=== PATIENT | female | born 1990 | race African-American/Black ===

== ENCOUNTER 2016-12-07 19:32 | Emergency (ER) | payer OTHER, MEDICAID ==
[2016-12-07 20:03] VITALS: BP 116/64
[2016-12-07] MEDS ORDERED: LIDOCAINE 1% INJ-PF (10 MG/ML) 30 ML SDV INJ ONE (21:05)
[2016-12-07] MEDS ORDERED: DIPH/PERTUSS(ACELL)/TETANUS VAC/PF 0.5 ML SYR (>=10YO) IM ONE (21:06)
--- NOTE | 2016-12-07 21:09 | ER Document Report ---
ED Wound - General Chief Complaint: Laceration Stated Complaint: FOOT INJURY Time Seen by Provider: 12/07/16 20:27 Mode of Arrival: Ambulatory Information source: Patient TRAVEL OUTSIDE OF THE [place] IN LAST 30 DAYS: No - HPI Patient complains to provider of: Laceration Occurred: Just prior to arrival Onset/Duration: Sudden Quality of pain: No pain Context: Injury Skin Color: Normal Capillary refill: < 3 seconds Sensations intact: Yes Distal pulses present: Yes Associated Symptoms: Bleeding Notes: Patient states that she dropped a knife and moved her foot in an attempt to not be hit by the knife and when she put her foot down she excellently stepped on a knife causing a small laceration to the medial aspect of the left foot. Bleeding is controlled. She denies any other injuries. She denies any numbness , tingling, weakness. She denies any rashes. No redness. No drainage. She is approximately 19 weeks . She is unsure of her last tetanus shot. She denies any other complaints at this time. - Related Data Allergies/Adverse Reactions: carboxymethylcellulose sodium [From Sterile Lubricant] Adverse Reaction ( Verified 11/28/15 16:00) unknown abx Allergy (Uncoded 11/28/15 16:00) Past Medical History - Social History Smoking Status: Unknown if Ever Smoked Family History: CVA, DM, Hypertension, Other - Kidney failure and brain tumor noncancerous Patient has suicidal ideation: No Patient has homicidal ideation: No Neurological Medical History: Reports: Hx Migraine Renal/ Medical History: Denies: Hx Peritoneal Dialysis GI Medical History: Reports: Hx Hiatal Hernia Psychiatric Medical History: Reports: Hx Anxiety, Hx Bipolar Disorder Past Surgical History: Reports: Hx Adenoidectomy, Hx Oral Surgery - Palate surgery, Hx Tonsillectomy - Immunizations Immunizations up to date: Yes Hx Diphtheria, Pertussis, Tetanus Vaccination: Yes Review of Systems - Review of Systems -: Yes All other systems reviewed and negative Physical Exam - Vital signs Vitals: Temp Pulse BP Pulse Ox 98.9 F 77 116/64 100 12/07/16 20:02 12/07/16 20:02 12/07/16 20:02 12/07/16 20:02 - Notes Notes: GENERAL: alert, cooperative, nontoxic, no distress. HEAD: normocephalic, atraumatic EYES: conjunctiva pink without discharge, no external redness or swelling. EARS: no external swelling, no external redness NOSE: atraumatic, no external swelling MOUTH/THROAT: mucous membranes moist and pink NECK: soft, supple, full range of motion, no meningismus. CHEST: no distress, lungs clear and equal throughout. No wheezing, rales, rhonchi. CARDIAC: regular rate and rhythm, no murmur, normal capillary refill, normal pulses. BACK: full range of motion, no CVA tenderness. EXTREMITIES: full range of motion of all extremities. No redness, no swelling. 2 cm laceration to the medial aspect of the left foot. Bleeding is controlled. This is into the subcutaneous tissue. There is no foreign body. No tendon laceration. Normal neurovascular exam distally. Normal pulse. NEURO: alert and oriented 3, no focal deficits, full range of motion of all extremities. PYSCH: appropriate mood, affect. Patient is cooperative. SKIN: pink, warm, dry, no rash. 2 cm laceration to the left foot. Course - Re-evaluation Re-evalutation: 12/07/16 21:41 Patient is nontoxic. Stable vitals. The patient has a superficial laceration to the medial aspect of the left foot. No foreign body. This was cleaned. Tetanus was updated. Sutures were placed. The patient will be discharged home with instructions to have the sutures removed in 10-12 days. Follow-up for increased pain, fever, redness, drainage, any further concerns. The patient's emergency department workup and current diagnosis were explained to the patient and or family. Follow-up instructions were provided. Medications if prescribed were discussed. Instructions for when to return to the emergency department including specific worrisome symptoms were discussed with the patient and/or family. - Vital Signs Vital signs: Temp Pulse Resp BP Pulse Ox 98.9 F 77 116/64 100 12/07/16 20:02 12/07/16 20:02 12/07/16 20:02 12/07/16 20:02 Procedures - Laceration/Wound Repair Left foot Wound length (cm): 2 Wound's Depth, Shape: Superficial, Linear Laceration pre-procedure: Sterile PPE donned, Sterile drapes applied Anesthetic type: 1% Lidocaine Wound explored: Clean, No foreign body removed Wound Repaired With: Sutures Suture Size/Type: 4:0, Nylon Number of Sutures: 4 Layer Closure?: No Post-procedure wound care: Sterile dressing applied Post-procedure NV exam normal: Yes Complications: No Discharge - Discharge Clinical Impression: Laceration of left foot Qualifiers: Encounter type: initial encounter Qualified Code(s): S91.312A - Laceration without foreign body, left foot, initial encounter Condition: Stable Disposition: HOME, SELF-CARE Instructions: Laceration Care ([facility]) Additional Instructions: Tylenol as needed for pain. Clean wound twice a day with soap and water. Follow-up in 10-12 days for suture removal. Follow-up sooner for increased pain , fever, redness, drainage, any further concerns. Referrals: [facility] [Provider Group] - Follow up as needed
== END 2016-12-07 22:02 | disposition home or self-care (01) ==
LOC: ER 19:32
DX: S91.312A Laceration without foreign body, left foot, initial encounter (principal); W26.0XXA Contact with knife, initial encounter; Z23 Encounter for immunization; Z88.1 Allergy status to other antibiotic agents; Z3A.19 19 weeks gestation of pregnancy
CPT/HCPCS: 12001; 99282; 90471; 90715; J3490

== ENCOUNTER 2017-03-25 19:24 | Outpatient (CLI) | payer OTHER, MEDICAID ==
[2017-03-25 19:19] VITALS: BP 123/69
[2017-03-25 20:30] LABS: ABSOLUTE EOSINOPHILS # (AUTO) 0.1 10^3/uL (0.0-0.6); ABSOLUTE MONOCYTES (AUTO) 0.6 10^3/uL (0.1-1.4); ABSOLUTE NEUT (AUTO) 6.9 10^3/uL (1.7-8.2); BASOPHILS % (AUTO) 0.2 % (0-2); EOSINOPHILS % (AUTO) 0.7 % (0-6); HEMATOCRIT 32.3 % (36.0-47.0); HEMOGLOBIN 10.6 g/dL (12.0-15.5); LYMPHOCYTES % (AUTO) 20.6 % (13-45); MEAN CORPUSCULAR HEMOGLOBIN 25.5 pg (27.0-33.4); MEAN CORPUSCULAR HGB CONC 32.8 g/dL (32.0-36.0); MEAN CORPUSCULAR VOLUME 78 fl (80-97); MONOCYTES % (AUTO) 6.2 % (3-13); PLATELET COUNT 167 10^3/uL (150-450); RED BLOOD COUNT 4.17 10^6/uL (3.72-5.28); RED CELL DISTRIBUTION WIDTH 13.7 % (11.5-14.0); SEGMENTED NEUTROPHILS % (AUTO) 72.3 % (42-78); TOTAL CELLS COUNTED % (AUTO) 100 %; WHITE BLOOD COUNT 9.6 10^3/uL (4.0-10.5)
[2017-03-25 20:39] LABS: APPEARANCE,URINE CLEAR; BILIRUBIN,URINE NEGATIVE (NEGATIVE); COLOR,URINE YELLOW; GLUCOSE, URINE NEGATIVE (NEGATIVE); KETONES,URINE NEGATIVE (NEGATIVE); LEUKOCYTE ESTERASE,URINE SMALL (NEGATIVE); NITRITE,URINE NEGATIVE (NEGATIVE); PROTEIN,URINE NEGATIVE (NEGATIVE); URINE SPECIFIC GRAVITY 1.005; UROBILINOGEN,URINE NEGATIVE mg/dL (<2.0)
[2017-03-25 20:45] LABS: ALANINE AMINOTRANSFERASE 18 U/L (9-52); ALBUMIN 2.9 g/dL (3.5-5.0); ALKALINE PHOSPHATASE 131 U/L (38-126); ANION GAP 7 (5-19); ASPARTATE AMINO TRANSFERASE 14 U/L (14-36); BILIRUBIN,DIRECT 0.3 mg/dL (0.0-0.4); BILIRUBIN,TOTAL 0.4 mg/dL (0.2-1.3); BLOOD UREA NITROGEN 3 mg/dL (7-20); CALCIUM 8.9 mg/dL (8.4-10.2); CARBON DIOXIDE 22 mmol/L (22-30); CHLORIDE 108 mmol/L (98-107); GLUCOSE 90 mg/dL (75-110); POTASSIUM 3.7 mmol/L (3.6-5.0); SODIUM 136.5 mmol/L (137-145); TOTAL PROTEIN 5.9 g/dL (6.3-8.2)
[2017-03-25 21:00] LABS: URINE AMPHETAMINES SCREEN NEGATIVE; URINE BARBITURATES SCREEN NEGATIVE; URINE BENZODIAZEPINES SCREEN NEGATIVE; URINE COCAINE SCREEN NEGATIVE; URINE MARIJUANA (THC) SCREEN NEGATIVE; URINE METHADONE SCREEN NEGATIVE; URINE PHENCYCLIDINE SCREEN NEGATIVE
--- NOTE | 2017-03-25 22:11 | Non Stress Test Report ---
Non Stress Test Datetime Report Generated by CPN: 03/25/2017 22:11 DEMOGRAPHIC EGA NST: 34.1 INDICATION Indication for Study: Ordered by Provider; Other Indication for Study (NST) Other: labor check MONITORING Monitor Explained: Monitor Explained; Test Explained; Patient Verbalized Understanding Time on Monitor: 03/25/2017 19:54 Time off Monitor: 03/25/2017 21:59 NST Duration: 125 NST INTERVENTIONS NST Interventions: PO Hydration; IV Fluids Physician Notified NST: Dr Jr BABY A: [id number] BABY A Movement : Present Contraction Frequency : none FHR Baseline : 135 Accelerations : 15X15 Decelerations : None Variability : Moderate 6-25bpm NST Review: Meets Criteria for Reactive NST NST Review and Verified By : B. Ring RN NST Results: Reactive NST COMMENTS NST Comments: Dr Jr reviewed strip, pt stable for D/C home. NST REPORT Report Trigger: Send Report
== END 2017-03-25 22:10 | disposition home or self-care (01) ==
LOC: LC 19:24 → EDSTATUS 19:33 → LC 22:10
PROVIDERS: ATTEND Obstetrics & Gynecology
PROC: 4A1HXCZ Monitoring of Products of Conception, Cardiac Rate, External Approach (ICD-10-PCS; principal; 2017-03-25)
DX: O47.03 False labor before 37 completed weeks of gestation, third trimester (principal); Z3A.34 34 weeks gestation of pregnancy
CPT/HCPCS: 36415; 59025; 80053; 80307; 81001; 85025

== ENCOUNTER 2017-04-19 03:45 | Inpatient (IN) | payer OTHER, MEDICAID ==
[2017-04-19 04:22] LABS: APPEARANCE,URINE SLIGHTLY-CLOUDY; BILIRUBIN,URINE NEGATIVE (NEGATIVE); COLOR,URINE YELLOW; GLUCOSE, URINE NEGATIVE (NEGATIVE); KETONES,URINE NEGATIVE (NEGATIVE); LEUKOCYTE ESTERASE,URINE TRACE (NEGATIVE); NITRITE,URINE NEGATIVE (NEGATIVE); PROTEIN,URINE NEGATIVE (NEGATIVE); URINE SPECIFIC GRAVITY 1.005; UROBILINOGEN,URINE NEGATIVE mg/dL (<2.0)
[2017-04-19 04:32] LABS: AMNISURE (ROM) POSITIVE (NEGATIVE)
[2017-04-19] MEDS ORDERED: RINGERS SOLUTION,LACTATED 1,000 ML IV PRN (04:33)
[2017-04-19] MEDS ORDERED: PENICILLIN G POTASSIUM 5,000,000 UNIT in DEXTROSE 5%-WATER 100 ML IV ONE (04:33)
[2017-04-19] MEDS ORDERED: RINGERS SOLUTION,LACTATED 1,000 ML IV ONE (04:33)
[2017-04-19] MEDS ORDERED: PENICILLIN G-K 5 MILLION UNIT VIAL ONE (04:34)
[2017-04-19] MEDS ORDERED: LIDOCAINE 1% INJ-PF (10 MG/ML) 30 ML SDV ONE (04:35)
[2017-04-19] MEDS ORDERED: OXYTOCIN/NORMAL SALINE 20 UNIT/1,000 ML RTUINJ ONE (04:35)
[2017-04-19] MEDS ORDERED: MISOPROSTOL 0.2 MG TABLET ONE (04:35)
[2017-04-19 04:41] LABS: URINE AMPHETAMINES SCREEN NEGATIVE; URINE BARBITURATES SCREEN NEGATIVE; URINE BENZODIAZEPINES SCREEN NEGATIVE; URINE COCAINE SCREEN NEGATIVE; URINE MARIJUANA (THC) SCREEN NEGATIVE; URINE METHADONE SCREEN NEGATIVE; URINE PHENCYCLIDINE SCREEN NEGATIVE
[2017-04-19 05:07] LABS: HEMATOCRIT 34.6 % (36.0-47.0); HEMOGLOBIN 11.5 g/dL (12.0-15.5); MEAN CORPUSCULAR HEMOGLOBIN 25.6 pg (27.0-33.4); MEAN CORPUSCULAR HGB CONC 33.1 g/dL (32.0-36.0); MEAN CORPUSCULAR VOLUME 77 fl (80-97); PLATELET COUNT 151 10^3/uL (150-450); RED BLOOD COUNT 4.47 10^6/uL (3.72-5.28); RED CELL DISTRIBUTION WIDTH 15.9 % (11.5-14.0); WHITE BLOOD COUNT 10.7 10^3/uL (4.0-10.5)
[2017-04-19 05:35] LABS: ABSOLUTE LYMPHOCYTES# (MANUAL) 2.7 10^3/uL (0.5-4.7); ABSOLUTE MONOCYTES # (MANUAL) 0.7 10^3/uL (0.1-1.4); ABSOLUTE NEUTROPHILS# (MANUAL) 7.3 10^3/uL (1.7-8.2); BAND NEUTROPHILS % (MANUAL) 1 % (3-5); BASOPHILS % (MANUAL) 0 % (0-2); EOSINOPHILS % (MANUAL) 0 % (0-6); LYMPHOCYTES % (MANUAL) 25 % (13-45); MONOCYTES % (MANUAL) 7 % (3-13); SEGMENTED NEUTROPHILS % (MAN) 67 % (42-78); TOTAL CELLS COUNTED 100
[2017-04-19 05:36] LABS: ANISOCYTOSIS SLIGHT; OVALOCYTES 1+; POIKILOCYTOSIS 1+; SCHISTOCYTES 1+; TOXIC GRANULATION 2+
[2017-04-19 05:37] LABS: PLATELET COMMENT ADEQUATE; PLATELET LARGE PRESENT; TEAR DROP CELLS SLIGHT; TOXIC VACUOLATION PRESENT
[2017-04-19] MEDS ORDERED: MEASLES,MUMPS&RUBELLA VACC/PF 0.5 ML VIAL SUBCUT PRN (07:01)
[2017-04-19] MEDS ORDERED: PROMETHAZINE HCL 25 MG SUPP.RECT PR PRN (07:01)
[2017-04-19] MEDS ORDERED: NA PHOS,M-B/NA PHOS,DI-BA (ADULT) 133 ML ENEMA PR PRN (07:01)
[2017-04-19] MEDS ORDERED: ACETAMINOPHEN 650 MG SUPP.RECT PR PRN (07:01)
[2017-04-19] MEDS ORDERED: DIPHENHYDRAMINE HCL 25 MG CAPSULE PO PRN (07:01)
[2017-04-19] MEDS ORDERED: DIPH/PERTUSS(ACELL)/TETANUS VAC/PF 0.5 ML SYR (>=10YO) IM PRN (07:01)
[2017-04-19] MEDS ORDERED: PSEUDOEPHEDRINE HCL 30 MG TABLET PO PRN (07:01)
[2017-04-19] MEDS ORDERED: PROMETHAZINE HCL 25 MG TABLET PO PRN (07:01)
[2017-04-19] MEDS ORDERED: OXYTOCIN/NORMAL SALINE 20 UNIT/1,000 ML RTUINJ IV PRN (07:01)
[2017-04-19] MEDS ORDERED: MAGNESIUM HYDROXIDE SUSP 30 ML UDCUP PO PRN (07:01)
[2017-04-19] MEDS ORDERED: DIBUCAINE 1% OINTMENT 28 GM TP PRN (07:01)
[2017-04-19] MEDS ORDERED: BENZOCAINE/MENTHOL AEROSOL SPRAY 56 ML TOP PRN (07:01)
[2017-04-19] MEDS ORDERED: ZOLPIDEM TARTRATE 5 MG TABLET PO PRN (07:01)
[2017-04-19] MEDS ORDERED: PROMETHAZINE HCL INJ 25 MG/1 ML VIAL IV PRN (07:01)
[2017-04-19] MEDS ORDERED: GLYCERIN/WITCH HAZEL LEAF 1 EACH MED..PAD TP PRN (07:01)
[2017-04-19] MEDS ORDERED: ACETAMINOPHEN WITH CODEINE #3 TABLET PO PRN ×2 (07:01)
[2017-04-19] MEDS ORDERED: IBUPROFEN 800 MG TABLET ONE (07:54)
[2017-04-19] MEDS ORDERED: PENICILLIN G POTASSIUM 2,500,000 UNIT in DEXTROSE 5%-WATER 50 ML IV SCH (08:00)
--- NOTE | 2017-04-19 09:14 | Delivery Summary ---
Del Sum A-C Datetime Report Generated by CPN: 04/19/2017 09:14 DELIVERY PERSONNEL DELIVERY PERSONNEL: [id number] Delivery Doctor:: Solange Norris MD Labor and Delivery Nurse:: Gloria Hayward RN Labor and Delivery Nurse:: Lindsey Ramirez RN Nursery Nurse:: Esther Mo RN Fire Observer/DIRECTOR CORPORATE COMPLIANCE: Dennise Semar, PROFESSIONAL SERVICES MANAGER MATERNAL INFORMATION Delivery Anesthesia: None Medications After Delivery: Pitocin Bolus-Please Comment; Pitocin Drip 20 Units/1000ml NSS Maternal Complications: Precipitous Labor (<3hrs) LABOR SUMMARY EDC: 05/05/2017 00:00 No. Babies in Womb: 1 Attempted: No Labor Anesthesia: None LABOR INFORMATION Reason for Induction: Not Applicable Onset of Labor: 04/19/2017 03:30 Complete Dilatation: 04/19/2017 06:23 Oxytocin: N/A Group B Beta Strep: Positive Antibiotics # of Doses: 1 Antibiotics Time of Last Dose: 0518 Name of Antibiotic Given: PCN Steroids Given: None Reason Steroids Not Administered: Not Applicable MEMBRANES Membranes Rupture Method: Spontaneous Rupture of Membranes: 04/19/2017 03:30 Length of Rupture (hr): 3.22 Amniotic Fluid Color: Clear Amniotic Fluid Amount: Small Amniotic Fluid Odor: Normal STAGES OF LABOR Stage 1 hr: 2 Stage 1 min: 53 Stage 2 hr: 0 Stage 2 min: 20 Stage 3 hr: 0 Stage 3 min: 2 Total Time in Labor hr: 3 Total Time in Labor min: 15 VAGINAL DELIVERY Episiotomy: None Laceration #1: None Laceration Extension #1: N/A Laceration Repair: Not Applicable Sponge Count Correct: N/A Sharps Count Correct: N/A CSECTION DELIVERY Primary Indication: N/A Secondary Indication: N/A CSection Incidence: N/A Labor: N/A Elective: N/A CSection Incision: N/A BABY A INFORMATION Delivery Date/Time: 04/19/2017 06:43 Method of Delivery: Vaginal Born in Route : No : N/A Forceps: N/A Vacuum Extraction: Successful Shoulder Dystocia : No ASSISTED DELIVERY BABY A Indication for Assisted Delivery: Deep Variables and decreased maternal pushing effort Catheter Prior to Procedure: Yes Station Vacuum/Forcep Apply: +2 Vacuum Number of Pulls: 1 Vacuum Number of PopOffs: 1 Vacuum Maximum Pressure Obtained: 550 Reduce Pressure btwn Ctx: No Vacuum Pediatric Neuropsychologist: KIWI Total Time Vacuum Applied: 1 min PRESENTATION/POSITION BABY A Presentation: Cephalic Cephalic Presentation: Vertex Vertex Position: Left Occipital Anterior Breech Presentation: N/A PLACENTA INFORMATION BABY A Placenta Delivery Time : 04/19/2017 06:45 Placenta Method of Delivery: Spontaneous Placenta Status: Delivered SCORES BABY A Heart Rate 1 min: >100 bpm Resp Effort 1 min: Slow, Irregular Reflex Irritability 1 min: Cough or Sneeze or Pulls Away Muscle Tone 1 min: Active Motion Color 1 min: Body [place], Extremities Blue Resuscitation Effort 1 min: Tactile Stimulation SCORE 1 MIN: 8 Heart Rate 5 min: >100 bpm Resp Effort 5 min: Good Cry Reflex Irritability 5 min: Cough or Sneeze or Pulls Away Muscle Tone 5 min: Active Motion Color 5 min: Body [place], Extremities Blue Resuscitation Effort 5 min: Tactile Stimulation SCORE 5 MIN: 9 INFANT INFORMATION BABY A Gestational Age at Delivery: 37.5 Gestational Status: Early Term- 37- 38.6 Weeks Outcome : Liveborn Infant Condition : Stable Sex: Male IDENTIFICATION BABY A Verification Date/Time: 04/19/2017 07:29 ID Band Number: [id number] Mother's Name Verified: Yes Infant RN Verifying : CSoledad Riojas, RN/SSoledad Riojas, DIRECTOR CORPORATE COMPLIANCE WEIGHT/LENGTH BABY A Birthweight (gm): 2760 Infant Weight (lb): 6 Infant Weight (oz): 1 Length (in): 18.50 Length (cm): 46.99 CORD INFORMATION BABY A No. Cord Vessels: 3 Nuchal Cord : N/A Cord Blood Taken: Yes-For Eval (Mom's Blood Type - or O+) Infant Suction: Mouth; Nose ASSESSMENT BABY A Infant Complications: Other Infant Complications- Other: terminal mec Physical Findings at Delivery: Molding of the Head Respirations: Appears Normal Skin to Skin: Yes Skin to Skin Time (min): 60 Route Cdl Driver/ALS Called : No Infant Care By: Conchita Mo RN Transferred To: Remains with Mother BABY B INFORMATION : N/A SIGNATURES Signature: with User ID: [email or web address]
--- NOTE | 2017-04-19 10:12 | Admission Physical ---
Datetime Report Generated by CPN: 04/19/2017 10:12 CURRENT ADMISSION Chief Complaint: Uterine Contractions; Suspected Ruptured Membranes Chief Complaint Other: SROM @ [facility] Indication for Induction: Not Applicable Indication for Induction: Term, Intrauterine ; Active Labor Admit Plan: Admit to Unit; Initiate Labor Protocol ALLERGIES Medication Allergies: Yes Medication Allergies: ciprofloxacin (04/19/2017); latex (04/19/2017) Medication Allergies: ciprofloxacin (04/19/2017) Medication Allergies: carboxymethylcellulose sodium (11/28/2015) Latex: Latex Allergies Food Allergies: Gluten, dairy, tree nuts OBSTETRICAL HISTORY EDC: 05/05/2017 00:00 : 2 Para: 1 Term: 1 : 0 SAB: 0 IAB: 0 Ectopic: 0 Livin Cesareans: 0 VBACs: 0 Multiple Births: 0 Gestational Diabetes: No Rh Sensitization: No Incompetent Cervix: No SONJA: No Infertility: No ART Treatment: No Uterine Anomaly: No IUGR: No Hx Previous C/S: No Macrosomia: No Hx Loss/Stillborn: No PIH: No Hx : No Placenta Previa/Abruption: No Depression/PP Depression: No PTL/PROM: No Post Hemorrhage: No Current Procedures: Ultrasound; NST Obstetrical History Comments: 2012 male @ 37 wks 6lbs 5oz G2- Current SEE RECORDS Alcohol: No Marijuana : No Cocaine: No Other Illicit Drugs: No Cigarettes: Never Smoker. [id number] MEDICAL HISTORY Diabetes: No Blood Transfusion: No Pulmonary Disease (Asthma, TB): No Breast Disease: No Hypertension: No Director Learning And Development Surgery: No Heart Disease: No Hosp/Surgery: Yes Autoimmune Disorder: No Anesthetic Complications: No Kidney Disease: No Abnormal Pap Smear: No Neuro/Epilepsy: No Psychiatric Disorders: No Other Medical Diseases: No Hepatitis/Liver Disease: No Significant Family History: No Varicosities/Phlebitis: No Trauma/Violence : No Thyroid Dysfunction: No Medical History Comments: childbirth; T_A; shaved down palate; INFECTIOUS HISTORY Gonorrhea: No Genital Herpes: No Chlamydia: No Tuberculosis: No Syphilis: No Hepatitis: No HIV/AIDS Exposure: No Rash or Viral Illness: No HPV: No PHYSICAL EXAM General: Normal HEENT: Normal Neurologic: Normal Thyroid: Normal Heart: Normal Lungs: Normal Breast: Normal Back: Normal Abdomen: Normal Genitourinary Exam: Normal Extremities: Normal DTRs: Normal Pelvic Type: Adequate Vital Signs: Reviewed VAGINAL EXAM Dilatation: 10 Effacement: 100 Station: 2 MEMBRANES Pooling: Positive Membranes: Ruptured Amniotic Fluid Color: Clear FETUS A EGA: 37.5 Monitoring: External US FHR- Baseline: 140 Variability: Minimal - Undetectable to <=5bpm (Annotations: Data stored by [facility] on behalf of user) Decelerations: Variable Estimated Weight (gm): 3200 Presentation: Vertex PLANS FOR LABOR AND DELIVERY Labor and Delivery: Other, Specify Pain Management: Natural Feeding Preference: Breast Benefit of Breast Feed Discussed: Yes Circumcision: Yes INFORMED CONSENT Signature: with User ID: [email or web address]
[2017-04-19] MEDS: FAMOTIDINE 20 MG TABLET PO SCH ×2 (10:52→21:32)
[2017-04-19] MEDS: DOCUSATE SODIUM 100 MG CAPSULE PO SCH ×2 (10:52→18:26)
[2017-04-19] MEDS: FERROUS SULFATE 325 MG TABLET PO SCH ×2 (10:52→18:26)
[2017-04-19] MEDS: PRENATAL VITAMIN W DHA CAPSULE PO SCH (10:53)
[2017-04-19] MEDS: SENNOSIDES/DOCUSATE 8.6-50 MG 1 EACH TABLET PO SCH (10:53)
[2017-04-19] MEDS: IBUPROFEN 800 MG TABLET PO SCH ×2 (14:17→21:32)
[2017-04-20] MEDS: IBUPROFEN 800 MG TABLET PO SCH ×3 (05:17→22:32)
[2017-04-20 07:13] LABS: HEMOGLOBIN 10.6 g/dL (12.0-15.5); MEAN CORPUSCULAR HEMOGLOBIN 25.1 pg (27.0-33.4); MEAN CORPUSCULAR HGB CONC 32.2 g/dL (32.0-36.0); MEAN CORPUSCULAR VOLUME 78 fl (80-97); PLATELET COUNT 137 10^3/uL (150-450); RED BLOOD COUNT 4.23 10^6/uL (3.72-5.28); RED CELL DISTRIBUTION WIDTH 16.3 % (11.5-14.0); WHITE BLOOD COUNT 13.2 10^3/uL (4.0-10.5)
--- NOTE | 2017-04-20 08:51 | PDOC PROGRESS REPORT ---
Subjective-OB Progress Note for:: 04/20/17 Physical Exam (OB) Vital Signs: Temp Pulse Resp BP Pulse Ox 98.3 F 68 18 125/66 100 04/19/17 19:57 04/19/17 19:57 04/19/17 19:57 04/19/17 19:57 04/19/17 19:57 Intake & Output 04/19/17 04/20/17 04/21/17 06:59 06:59 06:59 Weight 80.8 kg - PIH/Pre-Eclampsia Clonus: Negative Headache: Absent Epigastric Pain: No Visual Changes: No - Lochia Lochia Amount: Small 10-25 ml Lochia Color: Rubra/Red - Abdomen Description: Soft, Round Hernia Present: No Bowel Sounds: Normoactive Flatus Presence: Present Stool: Yes Fundal Description: Firm Fundal Height: u/u - u/2 - Respiratory Breath sounds: Clear - Extremities Calf: Normal Objective-Diagnostic Laboratory: 04/20/17 06:37 04/20/17 06:37 WBC 13.2 H RBC 4.23 Hgb 10.6 L Hct 33.0 L MCV 78 L MCH 25.1 L MCHC 32.2 RDW 16.3 H Plt Count 137 L Assessment and Plan(PN) - Assessment and Plan (1) Vaginal delivery Is this a current diagnosis for this admission?: Yes - Time Spent with Patient Time with patient: Less than 15 minutes Medications reviewed and adjusted accordingly: Yes - Disposition Anticipated Discharge: Home Within: within 24 hours
[2017-04-20] MEDS: DOCUSATE SODIUM 100 MG CAPSULE PO SCH ×2 (09:42→18:25)
[2017-04-20] MEDS: SENNOSIDES/DOCUSATE 8.6-50 MG 1 EACH TABLET PO SCH (09:42)
[2017-04-20] MEDS: FERROUS SULFATE 325 MG TABLET PO SCH ×2 (09:42→18:26)
[2017-04-20] MEDS: PRENATAL VITAMIN W DHA CAPSULE PO SCH (09:42)
[2017-04-20] MEDS ORDERED: CETIRIZINE 10 MG TABLET PO SCH (12:00)
[2017-04-20] MEDS: FAMOTIDINE 20 MG TABLET PO SCH ×2 (12:02→22:33)
[2017-04-21] MEDS: IBUPROFEN 800 MG TABLET PO SCH ×2 (05:15→14:35)
[2017-04-21] MEDS: DOCUSATE SODIUM 100 MG CAPSULE PO SCH (09:51)
[2017-04-21] MEDS: FAMOTIDINE 20 MG TABLET PO SCH (09:51)
[2017-04-21] MEDS: FERROUS SULFATE 325 MG TABLET PO SCH ×2 (09:51→19:47)
[2017-04-21] MEDS: SENNOSIDES/DOCUSATE 8.6-50 MG 1 EACH TABLET PO SCH (09:51)
[2017-04-21] MEDS: PRENATAL VITAMIN W DHA CAPSULE PO SCH (09:51)
--- NOTE | 2017-04-21 10:51 | PDOC PROGRESS REPORT ---
Subjective-OB Progress Note for:: 04/21/17 Subjective: Doing well, ready to go home, unsure if baby is going due to jaundice, breast feeding, voiding, scant bleeding Physical Exam (OB) Vital Signs: Temp Pulse Resp BP Pulse Ox 98.5 F 74 22 H 115/65 100 04/21/17 10:05 04/21/17 10:05 04/21/17 10:05 04/21/17 10:05 04/21/17 10:05 Intake & Output 04/20/17 04/21/17 04/22/17 06:59 06:59 06:59 Intake Total 240 Balance 240 - PIH/Pre-Eclampsia Clonus: Negative Headache: Absent Epigastric Pain: No Visual Changes: No - Lochia Lochia Amount: Scant < 10 ml Lochia Color: Rubra/Red - Abdomen Description: Soft, Round Hernia Present: No Fundal Description: Firm Fundal Height: u/u - u/2 Objective-Diagnostic Laboratory: 04/20/17 06:37 Assessment and Plan(PN) - Assessment and Plan (1) Vacuum extraction, delivered, current hospitalization Is this a current diagnosis for this admission?: Yes - Time Spent with Patient Time with patient: Less than 15 minutes Medications reviewed and adjusted accordingly: Yes - Disposition Anticipated Discharge: Home Within: Other - home today
--- NOTE | 2017-04-21 10:53 | PDOC DISCHARGE SUMMARY ---
Final Diagnosis Discharge Date: 04/21/17 - Final Diagnosis (1) Vacuum extraction, delivered, current hospitalization Is this a current diagnosis for this admission?: Yes Discharge Data - Discharge Medication Home Medications: Prenat 115/Iron Fum/Folic/Dss [ 19 Tablet] 1 tab PO DAILY 03/25/17 Gestational Age: 37.5 Reason(s) for Admission: Onset of Labor, Group B Strep Positive Procedures: NST, Ultrasound Intrapartum Procedure(s): Spontaneous Vaginal Delivery - [place] Data Baby 1 Male at 1 minute: 8 at 5 minutes: 9 Weight: 2.75 kg Home with Mother: Yes Complications: No - Diagnosis Test Laboratory: Temp Pulse Resp BP Pulse Ox 98.5 F 74 22 H 115/65 100 04/21/17 10:05 04/21/17 10:05 04/21/17 10:05 04/21/17 10:05 04/21/17 10:05 04/19/17 04/19/17 04/20/17 03:54 04:50 06:37 RBC 4.47 4.23 Hgb 11.5 L 10.6 L Hct 34.6 L 33.0 L Urine Opiates Screen NEGATIVE - Discharge information/Instructions Discharge Activity: Activity As Tolerated, No Lifting Over 10 Pounds, Pelvic Rest Discharge Diet: As Tolerated Disposition: HOME, SELF-CARE Follow [facility] with: [facility] in: 4, Weeks
[2017-04-21 17:28] VITALS: BP 106/57
== END 2017-04-21 18:54 | disposition home or self-care (01) | DRG 775 ==
LOC: LC 03:45 → LR 04:35 → 2S 10:11
PROVIDERS: ADMIT Obstetrics & Gynecology; ATTEND Obstetrics & Gynecology
PROC: 10D07Z6 Extraction of Products of Conception, Vacuum, Via Natural or Artificial Opening (ICD-10-PCS; principal; 2017-04-19)
PROC: 3E0234Z Introduction of Serum, Toxoid and Vaccine into Muscle, Percutaneous Approach (ICD-10-PCS; 2017-04-21)
PROC: 3E0234Z Introduction of Serum, Toxoid and Vaccine into Muscle, Percutaneous Approach (ICD-10-PCS; 2017-04-21)
DX: O62.3 Precipitate labor (principal); O99.824 Streptococcus B carrier state complicating childbirth; O76 Abnormality in fetal heart rate and rhythm complicating labor and delivery; O77.0 Labor and delivery complicated by meconium in amniotic fluid; Z3A.37 37 weeks gestation of pregnancy; Z37.0 Single live birth; Z23 Encounter for immunization
CPT/HCPCS: 36415; 80307; 81005; 84112; 85025; 85027; 86592; 86850; 86900; 86901; 90707; 90715; J2540; J2590; J3490

== ENCOUNTER → 2018-04-14 | Outpatient (CLI) | payer OTHER ==
[2018-04-14 09:24] LABS: ABSOLUTE EOSINOPHILS # (AUTO) 0.1 10^3/uL (0.0-0.6); ABSOLUTE LYMPHOCYTES (AUTO) 1.6 10^3/uL (0.5-4.7); ABSOLUTE MONOCYTES (AUTO) 0.2 10^3/uL (0.1-1.4); ABSOLUTE NEUT (AUTO) 1.6 10^3/uL (1.7-8.2); BASOPHILS % (AUTO) 0.7 % (0-2); EOSINOPHILS % (AUTO) 2.4 % (0-6); HEMATOCRIT 30.5 % (36.0-47.0); HEMOGLOBIN 10.1 g/dL (12.0-15.5); LYMPHOCYTES % (AUTO) 44.9 % (13-45); MEAN CORPUSCULAR HEMOGLOBIN 25.2 pg (27.0-33.4); MEAN CORPUSCULAR VOLUME 76 fl (80-97); MONOCYTES % (AUTO) 6.2 % (3-13); PLATELET COUNT 270 10^3/uL (150-450); RED BLOOD COUNT 3.99 10^6/uL (3.72-5.28); RED CELL DISTRIBUTION WIDTH 15.1 % (11.5-14.0); SEGMENTED NEUTROPHILS % (AUTO) 45.8 % (42-78); TOTAL CELLS COUNTED % (AUTO) 100 %; WHITE BLOOD COUNT 3.5 10^3/uL (4.0-10.5)
[2018-04-14 10:51] LABS: FOLATE 13.1 ng/mL (>2.76)
[2018-04-15 08:40] LABS: IMMUNOGLOBULIN G 1048 mg/dL (700-1600)
[2018-04-15 20:39] LABS: IMMUNOGLOBULIN M 306 mg/dL (26-217)
[2018-04-18 05:39] LABS: ENDOMYSIAL ANTIBODY IGA Negative (Negative)
[2018-04-18 07:33] LABS: DEAMIDATED GLIADIN IGA AB 4 units (0-19); DEAMIDATED GLIADIN IGG AB 3 units (0-19); T-TRANSGLUTAMINASE (TTG) IGA <2 U/mL (0-3); T-TRANSGLUTAMINASE (TTG) IGG <2 U/mL (0-5)
[2018-04-18 07:35] LABS: IMMUNOGLOBULIN D QUANT SERUM 2.53 mg/dL (<14.11)
== END ==
LOC: CCC 08:30
DX: R51 Headache (principal); R25.2 Cramp and spasm
CPT/HCPCS: 36415; 82607; 82746; 82784; 83520; 85025

== ENCOUNTER → 2019-03-02 | Outpatient (CLI) | payer OTHER ==
[2019-03-02 09:10] LABS: ABSOLUTE EOSINOPHILS # (AUTO) 0.1 10^3/uL (0.0-0.6); ABSOLUTE LYMPHOCYTES (AUTO) 1.7 10^3/uL (0.5-4.7); ABSOLUTE MONOCYTES (AUTO) 0.3 10^3/uL (0.1-1.4); BASOPHILS % (AUTO) 0.9 % (0-2); EOSINOPHILS % (AUTO) 1.8 % (0-6); HEMATOCRIT 35.1 % (36.0-47.0); HEMOGLOBIN 11.3 g/dL (12.0-15.5); LYMPHOCYTES % (AUTO) 40.9 % (13-45); MEAN CORPUSCULAR HEMOGLOBIN 25.6 pg (27.0-33.4); MEAN CORPUSCULAR HGB CONC 32.3 g/dL (32.0-36.0); MEAN CORPUSCULAR VOLUME 79 fl (80-97); MONOCYTES % (AUTO) 6.7 % (3-13); PLATELET COUNT 233 10^3/uL (150-450); RED BLOOD COUNT 4.42 10^6/uL (3.72-5.28); RED CELL DISTRIBUTION WIDTH 13.4 % (11.5-14.0); SEGMENTED NEUTROPHILS % (AUTO) 49.7 % (42-78); TOTAL CELLS COUNTED % (AUTO) 100 %
[2019-03-02 09:37] LABS: IRON 40.6 ug/dL (37-170)
[2019-03-02 10:10] LABS: FERRITIN 7.54 ng/mL (6.2-137.0)
== END ==
LOC: CCC 08:26
DX: D50.9 Iron deficiency anemia, unspecified (principal)
CPT/HCPCS: 36415; 82728; 83540; 85025; 85045